=== PATIENT | female | born 1970 | race African-American/Black ===

== ENCOUNTER 2016-12-28 14:13 | Emergency (ER) | payer OTHER ==
[~2016-12-28] VITALS: Ht 175.3 cm; Wt 59.9 kg
[2016-12-28 14:44] LABS: HEMATOCRIT 32.3 % (37.0-47.0); HEMOGLOBIN 10.9 gm/dL (12.0-15.0); MCH 30.6 pg (26.0-34.0); MCHC 33.8 g/dL (28.0-37.0); MCV 90.5 fL (80.0-100.0); RBC 3.57 mil/uL (4.20-5.00); RDW 19.5 % (10.5-14.5); WBC 6.1 thou/uL (4.0-11.0)
[2016-12-28] MEDS ORDERED: NORCO 5-325 TA1 EACH PO (15:35)
[2016-12-28] MEDS ORDERED: PREDNISONE 20 M20 MG PO (15:35)
[2016-12-28 15:37] VITALS: BP 188/103
== END 2016-12-28 15:40 | disposition home or self-care (01) ==
LOC: ER 14:13
PROVIDERS: Emergency Medicine
DX: M72.2 Plantar fascial fibromatosis (principal); D64.9 Anemia, unspecified

== ENCOUNTER 2018-09-19 18:05 | Emergency (ER) | payer OTHER ==
[~2018-09-19] VITALS: Ht 175.3 cm; Wt 59.9 kg
[~2018-09-19 18:05] MED LIST: NORCO 5-325 TA1 EACH PO; PREDNISONE 20 M20 MG PO
[2018-09-19 19:42] LABS: ABSOLUTE NEUTROPHILS 2.9 thou/uL (1.4-8.2); EOSINOPHILS 3.4 % (0.0-3.0); HEMOGLOBIN 9.4 gm/dL (12.0-15.0); LYMPHOCYTES 35.3 % (24.0-44.0); MCH 24.5 pg (26.0-34.0); MCHC 31.2 g/dL (28.0-37.0); MCV 78.5 fL (80.0-100.0); MONOCYTES 8.8 % (1.0-8.0); POLYS 51.5 % (36.0-66.0); RBC 3.82 mil/uL (4.20-5.00); RDW 20.4 % (10.5-14.5); WBC 5.7 thou/uL (4.0-11.0)
[2018-09-19 19:44] LABS: CREATININE 0.7 mg/dL (0.6-1.0); POTASSIUM 3.3 mmol/L (3.5-5.1)
[2018-09-19 19:50] LABS: ALBUMIN 3.9 g/dL (3.4-5.0); TOTAL BILIRUBIN 0.2 mg/dL (<0.1-1.0); TOTAL PROTEIN 8.1 g/dL (6.4-8.2)
[2018-09-19 20:04] LABS: LARGE PLATELETS SEVERAL; PLATELET COUNT 171 thou/uL (150-400)
[2018-09-19] MEDS ORDERED: ZOFRAN ODT4 MG PO (20:04)
[2018-09-19 21:08] LABS: URINE BILIRUBIN NEGATIVE (Negative); URINE BLOOD TRACE (Negative); URINE CLARITY CLEAR; URINE COLOR YELLOW; URINE GLUCOSE-RANDOM* NEGATIVE (Negative); URINE KETONES NEGATIVE (Negative); URINE LEUKOCYTES-REFLEX NEGATIVE (Negative); URINE NITRITE-REFLEX NEGATIVE (Negative); URINE PROTEIN (DIPSTICK) NEGATIVE (Negative); URINE UROBILINOGEN 0.2 E.U./dl (0.2-1.0)
[2018-09-19 21:12] VITALS: BP 172/101
== END 2018-09-19 21:13 | disposition left against medical advice (07) ==
LOC: ER 18:05
PROVIDERS: Emergency Medicine
DX: R19.7 Diarrhea, unspecified (principal); R11.10 Vomiting, unspecified; R10.31 Right lower quadrant pain; R10.32 Left lower quadrant pain; I10 Essential (primary) hypertension